=== PATIENT | male | born 1980 | race African-American/Black ===

== ENCOUNTER 2022-10-27 20:27 | Emergency (ER) | payer SELFPAY ==
[2022-10-27 20:33] VITALS: BP 170/105; PULSE 128; RESP 18; TEMP 36.7; O2SAT 98; BMI 43.0
--- NOTE | 2022-10-27 22:09 | ED.GENADULT ---
HPI - General Adult General Chief complaint: Extremity Pain/Injury, Lower Stated complaint: left leg pain Time Seen by Provider: 10/27/22 21:58 History of Present Illness HPI narrative: Patient here stating that he pulled his groin/thigh muscles most likely three days ago when doing martial arts. Worse with position changes. Took ibuprofen for relief. 42-year-old man presenting to the emergency department with severe pain in his left groin area. He has noted some swelling. Any movement hurts really. He has not had prior injury here. He has been participating in [employer] on though just short of getting his belt loop cutter and really went for it recently. 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 He does not recall a specific injury but woke up the next day after an intense workout and could barely move. 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 [id number] Ibuprofen has been ineffective. Related Data Previous Rx's Medication Instructions Recorded ibuprofen 800 mg tablet 800 mg PO Q6H PRN pain #28 tabs 10/28/22 Allergies Allergy/AdvReac Type Severity Reaction Status Date / Time No Known Drug Allergies Allergy Verified 10/27/22 21:55 Review of Systems Status of ROS: Reports: 6 or more systems reviewed and unremarkable except as noted in History and below Exam Narrative: Exam Narrative: Mr. Holden is seated uncomfortably almost hovering in his chair. Very pleasant. Breathing easily. Abdomen is overweight soft and nontender. I do not appreciate abdominal or inguinal wall defect or with exam evidence of inguinal hernia. No erythema. Examination the skin and groin area does show some soft swelling and exquisite tenderness and over the tendons/insertion of the abductor musculature of the left thigh. This extends tenderness to the Sitz bones as well to palpation. Uncomfortable but not with severe pain to resisted upward flexion of the thigh Const: Vital Signs, click to edit/add: Vital Signs - 24 hr 10/27/22 20:33 Temperature 98.1 F Pulse Rate [Right Pulse Oximeter] 128 H Respiratory Rate 18 Blood Pressure [Ri ght Upper Arm] 170/105 H Pulse Oximetry 98 Oxygen Delivery Me thod Room Air Documenting provider has reviewed patient's vital signs: yes Course Vital Signs Vital signs: Initial Vital Signs Temperature 98.1 F 10/27/22 20:33 Temperature Source Temporal Artery Scan 10/27/22 20:33 Pulse Rate 128 H 10/27/22 20:33 Respiratory Rate 18 10/27/22 20:33 Blood Pressure 170/105 H 10/27/22 20:33 Blood Pressure Mean 126 H 10/27/22 20:33 Blood Pressure Position Sitting 10/27/22 20:33 Pulse Oximetry 98 10/27/22 20:33 Oxygen Delivery Method Room Air 10/27/22 20:33 Vital Signs Temperature 98.1 F 10/27/22 20:33 Pulse Rate 128 H 10/27/22 20:33 Respiratory Rate 18 10/27/22 20:33 Blood Pressure 170/105 H 10/27/22 20:33 Pulse Oximetry 98 10/27/22 20:33 Oxygen Delivery Method Room Air 10/27/22 20:33 Temperature 98.1 F 10/27/22 20:33 Pulse Rate 128 H 10/27/22 20:33 Respiratory Rate 18 10/27/22 20:33 Blood Pressure 170/105 H 10/27/22 20:33 Pulse Oximetry 98 10/27/22 20:33 Oxygen Delivery Method Room Air 10/27/22 20:33 Medical Decision Making MDM Narrative Medical decision making narrative: It does sound as though there was specific stressors involved here that has resulted in musculoskeletal injury to the add doctors and flexors of the thigh. Also possible given areas of pain, while this may be regional pain/muscle spasm, there could be some avulsion fracture as well. There does not appear to be a hernia. Will be x-raying pelvis looking for this. Discussed pain management. Ordered for ice pack and given injection of ketorolac as does need to drive. X-ray pelvis reviewed by me without acute bony abnormality. Does seem more relaxed and comfortable on reassessment though still with not in significant pain. In discussing options for pain management, he will need something that he can drive on. As far as NSAIDs go I think ibuprofen would be fine. He notes the 200 mg tabs seem to work less well. Offered him ketorolac. Then further he notes that 800 mg tablets of ibuprofen historically seem particularly effective; more so than the equivalent made up of 200 mg tablets. Prescribing for temporary use. See patient discharge plan Discharge Plan Discharge Clinical Impression: Groin strain Patient Disposition: Home, Self-Care Condition: Improved Additional Instructions: I do think it is important to ice this area. Get yourself 1 of those ice bags as discussed. Ice a few times daily over the next few days. See handouts for other recommendations. See handout on groin strain and hip flexor strain for rehabilitation. I am diagnosing you more with a groin strain but hip flexor strain is also somewhat relevant. For now can take up to 800 mg of ibuprofen per dose or up to 1000 mg of acetaminophen per dose. Alternative to the ibuprofen could be up to 500 mg of naproxen 2 times daily. Can take ibuprofen or naproxen with acetaminophen but do not take ibuprofen and naproxen at the same time dosing. Remember that each tablet of [place] contains 325 mg of acetaminophen. As discussed it is an opiate and I would avoid driving for at least 6 hours after taking this. [place] from [facility]. If you are not clearly improved in 2 weeks I would be seen again. Pushing it too soon will set you back. I appreciate that you would like something ?that you can drive on? so I have prescribed some ketorolac from [facility]. This is what you got injected today. Consider it a substitute for ibuprofen or naproxen. Do not take it at the same time dosing that you might take ibuprofen or naproxen but it can be combined with acetaminophen or your [place]. Prescriptions: New ibuprofen 800 mg tablet 800 mg PO Q6H PRN (Reason: pain) Qty: 28 0RF Follow Up/Referrals: Provider,Not a Local [Primary Care Provider] - Stand Alone Forms: [employer] Info Instructions
--- NOTE | 2022-10-27 22:45 | CRLHL7_ITS ---
For Patients: As a result of the Cures Act, medical imaging exams and procedure reports are released immediately into your electronic medical record. You may view this report before your referring provider. If you have questions, please contact your health care provider. Indication: Left hip pain Technique: Frontal view pelvis Comparison: None Findings: Bones: Alignment is normal. No fractures or bone lesions. Joint spaces: Unremarkable. Soft tissues: Unremarkable. Impression: Negative. Dictated by Lay Akins MD @ 10/28/2022 12:13:28 AM (Electronically Signed)
[2022-10-27] MEDS: KETOROLAC 60 MG/2 ML inj IM (23:07)
== END 2022-10-28 00:34 | disposition home or self-care (01) ==
PROVIDERS: Emergency Provider Family Medicine
DX: S39.011A Strain of muscle, fascia and tendon of abdomen, initial encounter (principal)
CPT/HCPCS: 72170; 96372; 99284; J1885